=== PATIENT | male | born 1985 | race Native Hawaiian/Other Pacific Islander ===

== ENCOUNTER 2019-04-21 14:52 | Emergency (ER) | payer OTHER ==
[~2019-04-21] VITALS: Ht 195.6 cm; Wt 136.1 kg
[2019-04-21 15:13] VITALS: TEMP 97.8
[2019-04-21 16:31] LABS: PLATELET COUNT 311 K/uL (142-355)
[2019-04-21 16:37] LABS: POTASSIUM 3.4 mmol/L (3.6-5.2)
[2019-04-21 18:15] VITALS: BP 129/76
== END 2019-04-21 18:22 | disposition home or self-care (01) ==
LOC: ED 14:52
PROVIDERS: Family Medicine
DX: I10 Essential (primary) hypertension (principal)
CPT/HCPCS: 80053; 81000; 85027; 99283

== ENCOUNTER 2019-04-22 15:00 | Emergency (ER) | payer OTHER ==
[~2019-04-22] VITALS: Ht 195.6 cm; Wt 200.9 kg
[2019-04-22 15:12] VITALS: TEMP 98.3
[2019-04-22 16:21] LABS: PLATELET COUNT 318 K/uL (142-355)
[2019-04-22 16:34] LABS: POTASSIUM 3.8 mmol/L (3.6-5.2)
[2019-04-22 18:39] VITALS: BP 110/55
== END 2019-04-22 18:45 | disposition home or self-care (01) ==
LOC: ED 15:00
PROVIDERS: Student in an Organized Health Care Education/Training Program
DX: R42 Dizziness and giddiness (principal); E86.0 Dehydration
CPT/HCPCS: 80053; 81000; 83735; 85027; 96360; 96361; 99284

== ENCOUNTER 2019-11-23 11:35 | Outpatient (CLI) | payer OTHER ==
[2019-11-23 12:39] LABS: PLATELET COUNT 313 K/uL (142-355)
[2019-11-23 13:13] LABS: POTASSIUM 4.5 mmol/L (3.6-5.2)
== END 2019-11-23 20:41 | disposition home or self-care (01) ==
LOC: LABW 11:35
PROVIDERS: Internal Medicine
DX: I10 Essential (primary) hypertension (principal)
CPT/HCPCS: 80053; 80061; 81000; 84439; 84443; 85027

== ENCOUNTER 2022-06-07 18:46 | Emergency (ER) | payer OTHER ==
[~2022-06-07] VITALS: Ht 195.6 cm; Wt 200.9 kg
[2022-06-07 18:46] VITALS: TEMP 97.8
[2022-06-07 19:14] LABS: PLATELET COUNT 382 K/uL (142-355)
[2022-06-07 19:24] LABS: POTASSIUM 3.6 mmol/L (3.6-5.2)
[2022-06-08 08:00] VITALS: BP 142/91
== END 2022-06-08 08:20 | disposition short-term general hospital (02) ==
LOC: ED 18:46
PROVIDERS: Emergency Medicine
DX: R09.02 Hypoxemia (principal); Z20.822 Contact with and (suspected) exposure to COVID-19
CPT/HCPCS: 36415; 36600; 80053; 80307; 81002; 82805; 83880; 84484; 85027; 85379; 85610; 85730; 87502; 87635; 93005; 94664; 96374; 99284; J2920; Q9963; U0003

== ENCOUNTER 2022-10-11 16:58 | Emergency (ER) | payer OTHER ==
[~2022-10-11] VITALS: Ht 195.6 cm; Wt 198.2 kg
[2022-10-11 17:16] LABS: PLATELET COUNT 358 K/uL (142-355)
[2022-10-11 17:32] LABS: POTASSIUM 4.4 mmol/L (3.6-5.2)
[2022-10-11 21:00] VITALS: BP 152/82; TEMP 98.2
== END 2022-10-11 21:00 | disposition short-term general hospital (02) ==
LOC: ED 16:58
PROVIDERS: Internal Medicine
DX: R09.02 Hypoxemia (principal); Z11.52 Encounter for screening for COVID-19
CPT/HCPCS: 80053; 81002; 82805; 85027; 85379; 87070; 87205; 87635; 94664; 96365; 96375; 99284; J0696; J2930; Q9963; U0003